=== PATIENT | male | born 1950 | race Caucasian/White ===

== ENCOUNTER → 2019-08-22 | Outpatient (CLI) | payer MEDICARE ==
[~2019-08-22] MED LIST: Gadoteridol 279.3 MG/ML 20 ML SDV IV ONE
== END ==
LOC: FB.MRI 09:45
PROVIDERS: ATTEND Student in an Organized Health Care Education/Training Program
DX: K86.89 Other specified diseases of pancreas (principal)
CPT/HCPCS: 74183; A9579

== ENCOUNTER 2023-09-16 06:29 | Day surgery (SDC) | payer MEDICARE ==
[~2023-09-16 06:29] MED LIST changes: -Gadoteridol 279.3 MG/ML 20 ML SDV IV ONE; +Sodium Chloride 0.9% 10 ML Syringe FLUSH PRN
[2023-09-16] MEDS ORDERED: Glucagon,Human Recombinant 1 MG Vial IV ONE (06:30)
[2023-09-16] MEDS ORDERED: Propofol 200 MG/20 ML SDV IV ONE (06:30)
[2023-09-16] MEDS ORDERED: Lidocaine 2% 5 ML SDV IV ONE (06:30)
[2023-09-16 06:46] VITALS: BP 135/85; PULSE 113
[2023-09-16] MEDS: Lactated Ringers 1,000 ML IV SCH (07:30)
[2023-09-16] MEDS: Simethicone Drops 40 MG/0.6 ML 30 ML Bottle PO ONE (07:46)
== END 2023-09-16 09:17 | disposition home or self-care (01) ==
LOC: FB.SDS 06:29
PROVIDERS: ATTEND Surgery
DX: Z12.11 Encounter for screening for malignant neoplasm of colon (principal); D12.0 Benign neoplasm of cecum; D12.6 Benign neoplasm of colon, unspecified; K57.30 Diverticulosis of large intestine without perforation or abscess without bleeding; Z79.01 Long term (current) use of anticoagulants; Z79.899 Other long term (current) drug therapy
CPT/HCPCS: 00811; 88305; 99100; A9270-GY; J1610; J2704; J7120